=== PATIENT | female | born 1980 | race Hispanic/Latino ===

== ENCOUNTER 2018-08-18 14:18 | Outpatient (CLI) | payer OTHER ==
--- NOTE | 2018-08-18 15:22 | ULT ---
TRANSABDOMINAL AND TRANSVAGINAL PELVIC ULTRASOUND WITH HEART SCALE, COLOR FLOW AND SPECTRAL DOPPLER IM AGIN08/18/18 HISTORY: Pelvic pain. FINDINGS: The uterus measures 9.6 x 4.9 x 5.7 cm without mass or endometrial fluid. The endometrium measures 5 mm in thickness. The right ovary measures 3.8 x 2.1 x 1.7 cm and the left ovary measures 2 x 1 x 1 cm. A 3 cm right ov elisabeth cyst is present. There is a small amount of free fluid in the pelvis. There is prominence of va sculature in the pelvis. IMPRESSION: Probable pelvic congestion syndrome. POS: [place]
== END 2018-08-18 14:19 | disposition home or self-care (01) ==
LOC: BICULT 14:18
PROVIDERS: ATTEND Advanced Practice Midwife
DX: Z01.419 Encounter for gynecological examination (general) (routine) without abnormal findings (principal)
CPT/HCPCS: 76856